=== PATIENT | male | born 1960 | race Caucasian/White ===

== ENCOUNTER 2021-10-06 10:22 | Inpatient (IN) | payer OTHER ==
[2021-10-06] MEDS ORDERED: Dexamethasone 10 MG/ML VIAL ONE (12:22)
[2021-10-06] MEDS ORDERED: Acetaminophen 325 MG TAB PO PRN (16:44)
[2021-10-06 16:45] VITALS: BMI 31.6
[2021-10-06] MEDS ORDERED: Potassium Chloride 20 MEQ TAB PO SCH (17:30)
[2021-10-06] MEDS ORDERED: Ventolin HFA Inhaler 60 PUFF INHALER INH PRN (18:43)
[2021-10-06] MEDS: Famotidine 20 MG TAB PO SCH (21:00)
[2021-10-07 06:54] LABS: Hemoglobin 13.9 g/dL (13.5-17.5); Mean Corpuscular HGB CONC 34.4 g/dL (32.0-36.0); Mean Corpuscular Hemoglobin 28.2 pg (27.0-33.0); Mean Corpuscular Volume 81.9 fl (81.2-95.1); Mean Platelet Volume 9.5 fl (7.4-10.4); Platelet Count 165 10x3/uL (150-450); RBC Distribution Width 12.5 % (11.5-14.5); Red Blood Cell (RBC) Count 4.93 10x6/uL (4.32-5.72); White Blood Cell (WBC) Count 4.9 10x3/uL (3.5-10.5)
[2021-10-07 07:13] LABS: ALT (SGPT) 78 U/L (8-55); AST (SGOT) 85 U/L (5-34); Albumin 3.2 g/dL (3.4-4.8); Alkaline Phosphatase 90 U/L (40-110); Anion Gap 14 mmol/L (10-20); BUN (Urea Nitrogen) 16 mg/dL (8.4-25.7); Bilirubin, Total 0.5 mg/dL (0.2-1.2); Calc. Creatinine Clearance 155 mL/min (70-130); Calcium 8.2 mg/dL (7.8-10.44); Carbon Dioxide 24 mmol/L (23-31); Chloride 103 mmol/L (98-107); Glucose 131 mg/dL (80-115); Potassium 3.9 mmol/L (3.5-5.1); Protein, Total 6.2 g/dL (5.8-8.1); Sodium 137 mmol/L (136-145)
[2021-10-07 07:14] LABS: MDiff Complete? YES
[2021-10-07 07:18] LABS: Band 1 % (5-11); Lymphocytes 11 % (21-51); Monocytes 9 % (0-10); Neutrophil 76 % (42-75); Platelet Morphology Comment Appears Adequate; RBC Morphology Normal; Reactive Lymphocytes 3 % (0-10)
[2021-10-07] MEDS ORDERED: Dexamethasone 10 MG in Sodium Chloride 0.9% 50 ML IVPB SCH (09:00)
[2021-10-07] MEDS ORDERED: Dexamethasone 20 MG/5 ML VIAL SLOW IVP SCH (09:00)
[2021-10-07] MEDS: Dexamethasone 20 MG/5 ML VIAL SLOW IVP SCH ×2 (09:50→20:02)
[2021-10-07] MEDS: Cholecalciferol (Vitamin D3) 400 UNITS TAB PO SCH (10:14)
[2021-10-07] MEDS: Zinc Sulfate 220 MG CAP PO SCH (10:14)
[2021-10-07] MEDS: Famotidine 20 MG TAB PO SCH ×2 (10:14→20:02)
[2021-10-07] MEDS: Ascorbic Acid 500 mg Chewable Tablet PO SCH (10:14)
[2021-10-07] MEDS: Enoxaparin Sodium 40 MG/0.4 ML SYRINGE SC SCH (11:54)
[2021-10-07] MEDS: BARICITINIB 2 MG TAB PO SCH (13:15)
[2021-10-08 04:44] LABS: Anion Gap 12 mmol/L (10-20); BUN (Urea Nitrogen) 19 mg/dL (8.4-25.7); Calc. Creatinine Clearance 168 mL/min (70-130); Calcium 8.6 mg/dL (7.8-10.44); Carbon Dioxide 25 mmol/L (23-31); Chloride 103 mmol/L (98-107); Glucose 164 mg/dL (80-115); Sodium 136 mmol/L (136-145)
[2021-10-08] MEDS: Enoxaparin Sodium 40 MG/0.4 ML SYRINGE SC SCH (08:20)
[2021-10-08] MEDS: Dexamethasone 20 MG/5 ML VIAL SLOW IVP SCH ×2 (08:20→20:24)
[2021-10-08] MEDS: Zinc Sulfate 220 MG CAP PO SCH (08:20)
[2021-10-08] MEDS: Cholecalciferol (Vitamin D3) 400 UNITS TAB PO SCH (08:20)
[2021-10-08] MEDS: Ascorbic Acid 500 mg Chewable Tablet PO SCH (08:20)
[2021-10-08] MEDS: Famotidine 20 MG TAB PO SCH ×2 (08:20→20:24)
[2021-10-08] MEDS: Guaifenesin DM 100-10/5 ML UDCUP PO PRN ×2 (08:20→17:21)
[2021-10-08] MEDS: BARICITINIB 2 MG TAB PO SCH (13:56)
[2021-10-09] MEDS: Sodium Chloride 0.65% Nasal 44 ML BOT EA NARE PRN (03:45)
[2021-10-09 04:24] LABS: ALT (SGPT) 115 U/L (8-55); AST (SGOT) 59 U/L (5-34); Albumin 3.1 g/dL (3.4-4.8); Alkaline Phosphatase 106 U/L (40-110); Anion Gap 12 mmol/L (10-20); BUN (Urea Nitrogen) 21 mg/dL (8.4-25.7); Bilirubin, Direct 0.2 mg/dL (0.1-0.3); Bilirubin, Total 0.6 mg/dL (0.2-1.2); Calc. Creatinine Clearance 157 mL/min (70-130); Calcium 8.3 mg/dL (7.8-10.44); Carbon Dioxide 26 mmol/L (23-31); Chloride 103 mmol/L (98-107); Glucose 158 mg/dL (80-115); Potassium 4.3 mmol/L (3.5-5.1); Protein, Total 6.1 g/dL (5.8-8.1); Sodium 137 mmol/L (136-145)
[2021-10-09] MEDS: Cholecalciferol (Vitamin D3) 400 UNITS TAB PO SCH (08:30)
[2021-10-09] MEDS: Dexamethasone 20 MG/5 ML VIAL SLOW IVP SCH ×2 (08:30→20:34)
[2021-10-09] MEDS: Famotidine 20 MG TAB PO SCH ×2 (08:30→20:34)
[2021-10-09] MEDS: Ascorbic Acid 500 mg Chewable Tablet PO SCH (08:30)
[2021-10-09] MEDS: Zinc Sulfate 220 MG CAP PO SCH (08:30)
[2021-10-09] MEDS: Enoxaparin Sodium 40 MG/0.4 ML SYRINGE SC SCH (08:30)
[2021-10-09] MEDS: BARICITINIB 2 MG TAB PO SCH (12:26)
[2021-10-09] MEDS: Guaifenesin DM 100-10/5 ML UDCUP PO PRN (12:27)
[2021-10-10] MEDS: Guaifenesin DM 100-10/5 ML UDCUP PO PRN ×2 (02:15→21:36)
[2021-10-10] MEDS: Enoxaparin Sodium 40 MG/0.4 ML SYRINGE SC SCH (08:04)
[2021-10-10] MEDS: Cholecalciferol (Vitamin D3) 400 UNITS TAB PO SCH (08:05)
[2021-10-10] MEDS: Zinc Sulfate 220 MG CAP PO SCH (08:05)
[2021-10-10] MEDS: Dexamethasone 20 MG/5 ML VIAL SLOW IVP SCH ×2 (08:05→20:05)
[2021-10-10] MEDS: Ascorbic Acid 500 mg Chewable Tablet PO SCH (08:05)
[2021-10-10] MEDS: Famotidine 20 MG TAB PO SCH ×2 (08:05→20:05)
[2021-10-10] MEDS: BARICITINIB 2 MG TAB PO SCH (15:36)
[2021-10-11] MEDS: Guaifenesin DM 100-10/5 ML UDCUP PO PRN ×2 (05:29→06:06)
[2021-10-11] MEDS: Famotidine 20 MG TAB PO SCH ×2 (08:30→20:11)
[2021-10-11] MEDS: Zinc Sulfate 220 MG CAP PO SCH (08:30)
[2021-10-11] MEDS: Ascorbic Acid 500 mg Chewable Tablet PO SCH (08:30)
[2021-10-11] MEDS: Enoxaparin Sodium 40 MG/0.4 ML SYRINGE SC SCH (08:31)
[2021-10-11] MEDS: Dexamethasone 20 MG/5 ML VIAL SLOW IVP SCH ×2 (08:31→20:11)
[2021-10-11] MEDS: Cholecalciferol (Vitamin D3) 400 UNITS TAB PO SCH (08:31)
[2021-10-11] MEDS: BARICITINIB 2 MG TAB PO SCH (11:44)
[2021-10-11] MEDS ORDERED: guaiFENesin/Codeine 200 mg/20 mg 10 ml Cup PO PRN (12:06)
[2021-10-11] MEDS: Benzonatate 100 MG CAP PO SCH ×2 (16:50→20:11)
[2021-10-11] MEDS: Sodium Chloride 0.65% Nasal 44 ML BOT EA NARE PRN (17:29)
[2021-10-12 06:20] LABS: ALT (SGPT) 61 U/L (8-55); AST (SGOT) 18 U/L (5-34); Albumin 2.8 g/dL (3.4-4.8); Alkaline Phosphatase 85 U/L (40-110); Anion Gap 11 mmol/L (10-20); BUN (Urea Nitrogen) 22 mg/dL (8.4-25.7); Bilirubin, Direct 0.3 mg/dL (0.1-0.3); Bilirubin, Total 0.7 mg/dL (0.2-1.2); Calc. Creatinine Clearance 157 mL/min (70-130); Calcium 8.1 mg/dL (7.8-10.44); Carbon Dioxide 26 mmol/L (23-31); Chloride 102 mmol/L (98-107); Glucose 150 mg/dL (80-115); Potassium 4.1 mmol/L (3.5-5.1); Protein, Total 5.7 g/dL (5.8-8.1); Sodium 135 mmol/L (136-145)
[2021-10-12 07:23] LABS: #Monocytes 0.7 10x3/uL (0.0-1.1); #Neutrophils 7.2 10x3/uL (1.5-8.4); %Basophils 0.3 % (0.0-2.0); %Lymphocytes 9.3 % (18.0-47.0); %Neutrophils 80.2 % (40.0-75.0); Hemoglobin 14.1 g/dL (13.5-17.5); Mean Corpuscular HGB CONC 35.3 g/dL (32.0-36.0); Mean Corpuscular Hemoglobin 28.5 pg (27.0-33.0); Mean Corpuscular Volume 80.6 fl (81.2-95.1); Mean Platelet Volume 9.5 fl (7.4-10.4); Platelet Count 298 10x3/uL (150-450); RBC Distribution Width 11.9 % (11.5-14.5); Red Blood Cell (RBC) Count 4.95 10x6/uL (4.32-5.72)
[2021-10-12] MEDS: Benzonatate 100 MG CAP PO SCH ×3 (08:47→20:07)
[2021-10-12] MEDS: Ascorbic Acid 500 mg Chewable Tablet PO SCH (08:47)
[2021-10-12] MEDS: Cholecalciferol (Vitamin D3) 400 UNITS TAB PO SCH (08:47)
[2021-10-12] MEDS: Famotidine 20 MG TAB PO SCH ×2 (08:47→20:07)
[2021-10-12] MEDS: Dexamethasone 20 MG/5 ML VIAL SLOW IVP SCH ×2 (08:47→20:07)
[2021-10-12] MEDS: Enoxaparin Sodium 40 MG/0.4 ML SYRINGE SC SCH (08:47)
[2021-10-12] MEDS: Zinc Sulfate 220 MG CAP PO SCH (08:47)
[2021-10-12] MEDS: BARICITINIB 2 MG TAB PO SCH (15:00)
[2021-10-12] MEDS: Fluticasone Propionate Nasal Spray 16 gm Bottle NASAL SCH ×2 (17:25→22:38)
[2021-10-13] MEDS: Dexamethasone 20 MG/5 ML VIAL SLOW IVP SCH ×2 (08:46→21:00)
[2021-10-13] MEDS: Cholecalciferol (Vitamin D3) 400 UNITS TAB PO SCH (08:46)
[2021-10-13] MEDS: Ascorbic Acid 500 mg Chewable Tablet PO SCH (08:46)
[2021-10-13] MEDS: Zinc Sulfate 220 MG CAP PO SCH (08:46)
[2021-10-13] MEDS: Fluticasone Propionate Nasal Spray 16 gm Bottle NASAL SCH ×2 (08:46→21:00)
[2021-10-13] MEDS: Benzonatate 100 MG CAP PO SCH ×3 (08:46→21:00)
[2021-10-13] MEDS: Enoxaparin Sodium 40 MG/0.4 ML SYRINGE SC SCH (08:46)
[2021-10-13] MEDS: Famotidine 20 MG TAB PO SCH ×2 (08:46→21:00)
[2021-10-13] MEDS: BARICITINIB 2 MG TAB PO SCH (13:02)
[2021-10-13] MEDS: Calcium Carbonate 500 MG ChewTAB PO PRN (21:01)
[2021-10-14 06:44] LABS: #Basophils 0.1 10x3/uL (0.0-0.2); #Monocytes 0.6 10x3/uL (0.0-1.1); #Neutrophils 10.6 10x3/uL (1.5-8.4); %Basophils 0.5 % (0.0-2.0); %Eosinophils 0.2 % (0.0-6.0); %Monocytes 4.8 % (0.0-10.0); Hemoglobin 16.3 g/dL (13.5-17.5); Mean Corpuscular HGB CONC 35.2 g/dL (32.0-36.0); Mean Corpuscular Hemoglobin 28.7 pg (27.0-33.0); Mean Corpuscular Volume 81.5 fl (81.2-95.1); Mean Platelet Volume 10.5 fl (7.4-10.4); Platelet Count 434 10x3/uL (150-450); RBC Distribution Width 12.4 % (11.5-14.5); Red Blood Cell (RBC) Count 5.68 10x6/uL (4.32-5.72); White Blood Cell (WBC) Count 13.3 10x3/uL (3.5-10.5)
[2021-10-14 06:59] LABS: Anion Gap 17 mmol/L (10-20); BUN (Urea Nitrogen) 30 mg/dL (8.4-25.7); CRP (Inflammatory) 1.45 mg/dL (= or < 0.5); Calc. Creatinine Clearance 146 mL/min (70-130); Calcium 8.4 mg/dL (7.8-10.44); Carbon Dioxide 19 mmol/L (23-31); Chloride 103 mmol/L (98-107); Glucose 149 mg/dL (80-115); Potassium 4.4 mmol/L (3.5-5.1); Sodium 135 mmol/L (136-145)
[2021-10-14] MEDS: Enoxaparin Sodium 40 MG/0.4 ML SYRINGE SC SCH (09:30)
[2021-10-14] MEDS: Benzonatate 100 MG CAP PO SCH ×3 (09:30→19:52)
[2021-10-14] MEDS: Famotidine 20 MG TAB PO SCH ×2 (09:30→19:52)
[2021-10-14] MEDS: Dexamethasone 20 MG/5 ML VIAL SLOW IVP SCH ×2 (09:30→19:52)
[2021-10-14] MEDS: Cholecalciferol (Vitamin D3) 400 UNITS TAB PO SCH (09:30)
[2021-10-14] MEDS: Fluticasone Propionate Nasal Spray 16 gm Bottle NASAL SCH ×2 (09:31→19:53)
[2021-10-14] MEDS: Ascorbic Acid 500 mg Chewable Tablet PO SCH (09:31)
[2021-10-14] MEDS: Zinc Sulfate 220 MG CAP PO SCH (09:31)
[2021-10-14] MEDS: BARICITINIB 2 MG TAB PO SCH (15:08)
[2021-10-14] MEDS: Calcium Carbonate 500 MG ChewTAB PO PRN (19:52)
[2021-10-15 05:31] LABS: ALT (SGPT) 59 U/L (8-55); AST (SGOT) 18 U/L (5-34); Albumin 3.1 g/dL (3.4-4.8); Alkaline Phosphatase 73 U/L (40-110); Bilirubin, Direct 0.3 mg/dL (0.1-0.3); Bilirubin, Total 0.9 mg/dL (0.2-1.2)
[2021-10-15] MEDS: Dexamethasone 20 MG/5 ML VIAL SLOW IVP SCH ×2 (08:19→20:19)
[2021-10-15] MEDS: Zinc Sulfate 220 MG CAP PO SCH (08:19)
[2021-10-15] MEDS: Enoxaparin Sodium 40 MG/0.4 ML SYRINGE SC SCH (08:19)
[2021-10-15] MEDS: Famotidine 20 MG TAB PO SCH ×2 (08:19→20:19)
[2021-10-15] MEDS: Ascorbic Acid 500 mg Chewable Tablet PO SCH (08:20)
[2021-10-15] MEDS: Cholecalciferol (Vitamin D3) 400 UNITS TAB PO SCH (08:20)
[2021-10-15] MEDS: Benzonatate 100 MG CAP PO SCH ×3 (08:20→20:20)
[2021-10-15] MEDS: Fluticasone Propionate Nasal Spray 16 gm Bottle NASAL SCH ×2 (08:21→20:19)
[2021-10-15] MEDS: BARICITINIB 2 MG TAB PO SCH (14:19)
[2021-10-15] MEDS: Calcium Carbonate 500 MG ChewTAB PO PRN (20:20)
[2021-10-16] MEDS: Zinc Sulfate 220 MG CAP PO SCH (08:33)
[2021-10-16] MEDS: Cholecalciferol (Vitamin D3) 400 UNITS TAB PO SCH (08:33)
[2021-10-16] MEDS: Famotidine 20 MG TAB PO SCH (08:33)
[2021-10-16] MEDS: Benzonatate 100 MG CAP PO SCH (08:33)
[2021-10-16] MEDS: Ascorbic Acid 500 mg Chewable Tablet PO SCH (08:33)
[2021-10-16] MEDS: Dexamethasone 20 MG/5 ML VIAL SLOW IVP SCH (08:34)
[2021-10-16] MEDS: Enoxaparin Sodium 40 MG/0.4 ML SYRINGE SC SCH (08:34)
[2021-10-16] MEDS: Fluticasone Propionate Nasal Spray 16 gm Bottle NASAL SCH (08:37)
[2021-10-16 10:47] VITALS: BP 129/81; TEMP 98.2
== END 2021-10-16 11:45 | disposition home or self-care (01) | DRG 177 ==
LOC: CSHERS 10:22 → CSHTELE 12:48 → CSHIMCU 10-07 13:50 → CSHTELE 10-09 22:22
PROVIDERS: ADMIT Otolaryngology Otolaryngic Allergy; ATTEND Hospitalist
PROC: 8E0ZXY6 Isolation (ICD-10-PCS; 2021-10-06)
PROC: XW0DXM6 Introduction of Baricitinib into Mouth and Pharynx, External Approach, New Technology Group 6 (ICD-10-PCS; principal; 2021-10-07)
DX: U07.1 COVID-19 (principal); J12.82 Pneumonia due to coronavirus disease 2019; J96.01 Acute respiratory failure with hypoxia; E87.1 Hypo-osmolality and hyponatremia; R74.01 Elevation of levels of liver transaminase levels; E87.6 Hypokalemia; Z98.890 Other specified postprocedural states
CPT/HCPCS: 36415; 71045; 80048; 80053; 80076; 85025; 85379; 86140; 87070; 87205; 93005; 94640; 94760; 94762; 96374; J1100; J1650